=== PATIENT | male | born 1950 | race Caucasian/White ===

== ENCOUNTER 2016-09-07 09:39 | Day surgery (SDC) | payer MEDICARE, MEDICAID ==
[~2016-09-07] VITALS: Ht 160 cm; Wt 69.4 kg
[2016-09-07] MEDS ORDERED: OMEP40CA34 PO (10:40)
[2016-09-07] MEDS ORDERED: SIMV20TA6 PO (10:40)
[2016-09-07] MEDS ORDERED: CILO100T PO (10:40)
[2016-09-07] MEDS ORDERED: METF-246 PO (10:40)
[2016-09-07] MEDS ORDERED: CLOP75TA33 PO (10:40)
[2016-09-07] MEDS ORDERED: LISI1TAB9 PO (10:40)
[2016-09-07 12:09] LABS: HEMATOCRIT 28.6 % (42.0-52.0); MEAN CORPUSCULAR HEMOGLOBIN 33.6 pg (28.0-32.0); MEAN CORPUSCULAR HGB CONC 35.1 g/dL (31.0-37.0); MEAN CORPUSCULAR VOLUME 95.7 fL (80.0-94.0); PLATELET 189 x1000/uL (130-400); RED BLOOD CELL COUNT 2.99 mill/uL (4.7-6.1); WHITE BLOOD COUNT 8.5 x1000/uL (4.5-11.0)
[2016-09-07] MEDS ORDERED: FENTANYL CITRATE/PF 50MCG/ML 2ML VIAL ONE (12:10)
[2016-09-07] MEDS ORDERED: MIDAZOLAM HCL 2 MG/2 ML VIAL ONE (12:10)
[2016-09-07] MEDS ORDERED: LIDOCAINE HCL 1% 20ML VIAL (Pyxis) INJ ONE (12:11)
[2016-09-07] MEDS ORDERED: IODIXANOL 320MG/ML 100 ML BOTTLE IV ONE (12:11)
[2016-09-07] MEDS ORDERED: HEPARIN SODIUM 1,000 UNIT/1ML VIAL IV ONE (12:41)
== END 2016-09-07 16:50 | disposition home or self-care (01) ==
LOC: CCL 09:39
PROVIDERS: ATTEND Specialist
DX: I73.9 Peripheral vascular disease, unspecified (principal); E11.9 Type 2 diabetes mellitus without complications; E78.5 Hyperlipidemia, unspecified; I11.9 Hypertensive heart disease without heart failure; Z86.73 Personal history of transient ischemic attack (TIA), and cerebral infarction without residual deficits; E87.5 Hyperkalemia
CPT/HCPCS: 36245; 36247; 36415; 75716; 82962; 85027; C1760; C1769; C1893; J1644; J2250; J3010; J3490; Q9967; 75710